=== PATIENT | male | born 1940 | race Caucasian/White ===

== ENCOUNTER → 2017-07-21 | Outpatient (CLI) | payer MEDICARE ==
[2017-07-21 12:01] LABS: Blood Urea Nitrogen 15 mg/dL (9-20); Non-African American GFR(MDRD) >60 (>60 ml/min/1.73 sqM)
--- NOTE | 2017-07-21 12:58 | CT ---
EXAMINATION TYPE: CT soft tissue neck w con DATE OF EXAM: 07/21/2017 HISTORY: Neck swelling or lump on left side COMPARISON: NONE CT DLP: 974 mGycm. Automated Exposure Control for Dose Reduction was Utilized. TECHNIQUE: CT scan of the neck is performed with IV Contrast, patient injected with 100 ml mL of Omn ipaque 300, axial images are obtained, coronal and sagittal reformatted images are reviewed. FINDINGS: Airway: Mild emphysematous change in lung apices is felt present. Parotid/submandibular glands: No gross abnormality seen. Carotid/Vascular Structures: There is mild plaque in the arch extending into 3 great vessels. There i s mild mixed plaque at bilateral carotid bulbs without significant stenosis evident. Osseous Structures: There is straightening of spine on sagittal images. There is moderate to severe d isc space narrowing and spurring at C5-C6 and C6-C7 levels. There is multilevel uncovertebral facet a rthropathy bilaterally on axial images. Other: Metallic BB is placed at level of palpable abnormality left parotid gland level on axial image 21 anterior mid aspect. No worrisome solid or cystic mass or fluid collection is clearly seen at thi s level. There is slightly prominent draining external jugular vein at this level noted in the deeper parotid tissue. No suspicious greater than 1 cm neck adenopathy is seen. IMPRESSION: No worrisome mass or adenopathy is evident with particular attention to area of patient clinical concern left neck.
== END | disposition home or self-care (01) ==
LOC: RADCTMAIN 11:18
PROVIDERS: ATTEND Internal Medicine
DX: R22.1 Localized swelling, mass and lump, neck (principal)
CPT/HCPCS: 82565; 84520; 70491; 36415; Q9967

== ENCOUNTER 2019-09-28 19:14 | Inpatient (IN) | payer MEDICARE ==
[2019-09-28] MEDS ORDERED: SODIUM CHLORIDE 0.9% 1,000 ML IV STA (19:31)
[2019-09-28] MEDS ORDERED: SODIUM CHLORIDE 0.9% 500 ML 500 ML IV STA (19:31)
[2019-09-28 19:57] LABS: Basophils # (A) 0.2 k/uL (0-0.2); Basophils % (A) 2 %; Eosinophils # (A) 0.1 k/uL (0-0.7); Eosinophils % (A) 1 %; HCT 49.3 % (39.0-53.0); HGB 16.1 gm/dL (13.0-17.5); Lymphocytes # (A) 1.9 k/uL (1.0-4.8); Lymphocytes % (A) 19 %; MCH 29.8 pg (25.0-35.0); MCHC 32.6 g/dL (31.0-37.0); MCV 91.5 fL (80.0-100.0); Mean Platelet Volume 5.8; Monocytes # (A) 0.6 k/uL (0-1.0); Monocytes % (A) 6 %; Neutrophils # (A) 7.1 k/uL (1.3-7.7); Neutrophils % (A) 71 %; Platelet Count 396 k/uL (150-450); RBC 5.39 m/uL (4.30-5.90); RDW 12.9 % (11.5-15.5)
[2019-09-28 20:09] LABS: ALT 22 U/L (21-72); AST 27 U/L (17-59); African American GFR (CKD) >90 (>60 ml/min/1.73 sqM); Albumin 4.3 g/dL (3.5-5.0); Alkaline Phosphatase 102 U/L (38-126); Anion Gap 9 mmol/L; Blood Urea Nitrogen 15 mg/dL (9-20); Calcium 9.7 mg/dL (8.4-10.2); Carbon Dioxide 27 mmol/L (22-30); Chloride 103 mmol/L (98-107); Glucose 106 mg/dL (74-99); Potassium 4.3 mmol/L (3.5-5.1); Sodium 139 mmol/L (137-145); Total Bilirubin 0.5 mg/dL (0.2-1.3); Total Protein 7.3 g/dL (6.3-8.2)
[2019-09-28] MEDS ORDERED: PANTOPRAZOLE 40 MG/10 ML VIAL IVP STA ×2 (20:16→20:18)
[2019-09-28] MEDS ORDERED: SODIUM CHLORIDE 0.9% 1,000 ML IV ONE (20:17)
[2019-09-28] MEDS ORDERED: SODIUM CHLORIDE 0.9% 500 ML 500 ML IV ONE (20:17)
--- NOTE | 2019-09-28 20:17 | ED ---
GI Bleed HPI - General Source: patient Mode of arrival: ambulatory Limitations: no limitations <Huyen Cameron - Last Filed: 09/28/19 22:38> <Krais Gilliam - Last Filed: 10/01/19 01:20> - General Chief complaint: GI Bleed Stated complaint: GI Bleed/weakness Time Seen by Provider: 09/28/19 19:32 - History of Present Illness Initial comments: 79-year-old male presents emergency department for chief complaint of bloody stools. Patient states around 4:30 he had the sensation that he was going to have a bowel movement and he states he had a large amount of bright red blood with clots. Patient states this persisted every 30 minutes in large quantities. Patient states by the evening he began to feel lightheaded and had generalized weakness. Causing him to presents emergency room. Patient denies any antico agulation use or alcohol abuse. Denies any known history of rectal cancer however has not had a colonoscopy with a negative occult blood stool testing. Patient denies any hematemesis. Patient denies any known peptic ulcers or chronic health conditions denies known history of diverticulosis. Patient denies any recent surgeries or chronic health issues. Patient denies abdominal pain nausea chest pain or shortness of breath. Remaining review systems negative upon arrival HR WNL, BP elevated. (Huyen Cameron) - Related Data Home Medications Medication Instructions Recorded Confirmed No Known Home Medications 09/28/19 09/28/19 Allergies Allergy/AdvReac Type Severity Reaction Status Date / Time No Known Allergies Allergy Verified 09/28/19 20:39 Review of Systems ROS Other: All systems not noted in ROS Statement are negative. <Huyen Cameron - Last Filed: 09/28/19 22:38> ROS Other: All systems not noted in ROS Statement are negative. <Karis Gilliam - Last Filed: 10/01/19 01:20> ROS Statement: Those systems with pertinent positive or pertinent negative responses have been documented in the HPI. Past Medical History Past Medical History: Osteoarthritis (OA), Renal Disease Additional Past Medical History / Comment(s): nephrolithiasis, R eye cataract History of Any Multi-Drug Resistant Organisms: None Reported Past Surgical History: Joint Replacement, Tonsillectomy Additional Past Surgical History / Comment(s): 07/12/16 total R knee arthroplasty. Other surgical hx: rt hip replacement, cystoscopy/surgery for kidney stone, surgery to repair ureter Past Anesthesia/Blood Transfusion Reactions: No Reported Reaction Past Psychological History: No Psychological Hx Reported Smoking Status: Former smoker Past Alcohol Use History: Rare Past Drug Use History: None Reported - Past Family History Mother Family Medical History: No Reported History Additional Family Medical History / Comment(s): Mother was healthy and lived to be 92 yrs old. Father Family Medical History: No Reported History Additional Family Medical History / Comment(s): Father was healthy and lived to be 82 yrs. old <Huyen Cameron - Last Filed: 09/28/19 22:38> General Exam Limitations: no limitations <Huyen Cameron - Last Filed: 09/28/19 22:38> - General Exam Comments Initial Comments: General: The patient is awake and alert, in no distress Eye: Pupils are equal, round and reactive to light, extra-ocular movements are intact. No nystagmus. There is normal conjunctiva bilaterally. No signs of icterus. Ears, nose, mouth and throat: There are moist mucous membranes and no oral lesions. Neck: The neck is supple, there is no tenderness or JVD. Cardiovascular: There is a regular rate and rhythm. No murmur, rub or gallop is appreciated. Respiratory: Lungs are clear to auscultation, respirations are non-labored, breath sounds are equal. No wheezes, stridor, rales, or rhonchi. Gastrointestinal: Soft, non-distended, non-tender abdomen without masses or organomegaly noted. There is no rebound or guarding present. Musculoskeletal: Normal ROM, no tenderness. Strength 5/5. Sensation intact. Radial pulses equal bilaterally 2+. Neurological: A&O x 3. CN II-XII intact, There are no obvious motor or sensory deficits. Coordination appears grossly intact. Speech is normal. Skin: Skin is warm and dry and no rashes or lesions are noted. Psychiatric: Cooperative, appropriate mood & affect, normal judgment. (Huyen Cameron) Course <Huyen Cameron - Last Filed: 09/28/19 22:38> Vital Signs 09/28/19 09/28/19 09/28/19 19:23 19:52 20:00 Temperature 97.8 F Pulse Rate 99 93 83 Respiratory 20 18 17 Rate Blood Pressure 160/93 143/99 153/94 O2 Sat by Pulse 96 Oximetry 09/28/19 09/28/19 09/28/19 20:10 20:20 20:30 Temperature Pulse Rate 109 H 89 100 Respiratory 19 17 Rate Blood Pressure 144/109 167/105 167/105 O2 Sat by Pulse 97 Oximetry 09/28/19 09/28/19 09/28/19 20:40 20:50 21:00 Temperature Pulse Rate 98 84 80 Respiratory 17 18 Rate Blood Pressure 167/105 144/93 144/93 O2 Sat by Pulse 97 97 Oximetry 09/28/19 21:30 Temperature 98 F Pulse Rate 86 Respiratory 15 Rate Blood Pressure 161/86 O2 Sat by Pulse 96 Oximetry - Reevaluation(s) Reevaluation #1: Patient had one very large bloody bowel movement bright red with large clots roughly 150-200cc 09/28/19 20:20 (Huyen Cameron) Medical Decision Making - Lab Data Result diagrams: 09/28/19 19:45 09/28/19 19:45 <Huyen Cameron - Last Filed: 09/28/19 22:38> - Lab Data Result diagrams: 09/30/19 04:20 09/30/19 04:20 <Karis Gilliam - Last Filed: 10/01/19 01:20> - Medical Decision Making 79-year-old male presenting for GI bleed. Large amounts of gross red blood with clots. Given the amount seen in the commode and patient's frequency I am conc erned for impeding anemia and possible hemodynamic instability thus feel patient should be placed in ICU for large GI bleed. Current HgB stable. BP elevated with normal HR. Patient evaluated by attending including amount of bleeding, will repeat CBC in 2 hours then q6h. Patient accepted by ICU attending and internal medicine. Patient agreeable with admission. (Huyen Cameron) I was available for consultation in the emergency department. The history and physical exam were done by the midlevel provider. I was consulted for this patients care. I reviewed the case with the midlevel provider and based on their presentation of the patient, I agree with the assessment, medical decision making and plan of care as documented. I evaluated the patient myself. I spoke with the hospitalist, automotive product engineer and GI physician. Chart was dictated using [employer] dictation software. Attempts were made to correct any dictation errors however some typographical errors may persist. (Karis Gilliam) - Lab Data Lab Results 09/28/19 09/28/19 09/28/19 Range/Units 19:40 19:45 19:45 WBC 10.0 (3.8-10.6) k/uL RBC 5.39 (4.30-5.90) m/uL Hgb 16.1 (13.0-17.5) gm/dL Hct 49.3 (39.0-53.0) % MCV 91.5 (80.0-100.0) fL MCH 29.8 (25.0-35.0) pg MCHC 32.6 (31.0-37.0) g/dL RDW 12.9 (11.5-15.5) % Plt Count 396 (150-450) k/uL Neutrophils % 71 % Lymphocytes % 19 % Monocytes % 6 % Eosinophils % 1 % Basophils % 2 % Neutrophils # 7.1 (1.3-7.7) k/uL Lymphocytes # 1.9 (1.0-4.8) k/uL Monocytes # 0.6 (0-1.0) k/uL Eosinophils # 0.1 (0-0.7) k/uL Basophils # 0.2 (0-0.2) k/uL APTT (22.0-30.0) sec Sodium (137-145) mmol/L Potassium (3.5-5.1) mmol/L Chloride (98-107) mmol/L Carbon Dioxide (22-30) mmol/L Anion Gap mmol/L BUN (9-20) mg/dL Creatinine (0.66-1.25) mg/dL Est GFR (CKD-EPI)AfAm (>60 ml/min/1.73 sqM) Est GFR (CKD-EPI)NonAf (>60 ml/min/1.73 sqM) Glucose (74-99) mg/dL Plasma Lactic Acid Vasiliy (0.7-2.0) mmol/L Calcium (8.4-10.2) mg/dL Total Bilirubin (0.2-1.3) mg/dL AST (17-59) U/L ALT (21-72) U/L Alkaline Phosphatase (38-126) U/L Troponin I (0.000-0.034) ng/mL Total Protein (6.3-8.2) g/dL Albumin (3.5-5.0) g/dL Stool Occult Blood Positive (Negative) Blood Type O Positive Blood Type Confirm Blood Type Recheck No Previous Record Bld Type Recheck Status CABO Indicated Antibody Screen NEGATIVE Spec Expiration Date 10/01/2019234409/28/19 09/28/19 09/28/19 Range/Units 19:45 19:45 19:45 WBC (3.8-10.6) k/uL RBC (4.30-5.90) m/uL Hgb (13.0-17.5) gm/dL Hct (39.0-53.0) % MCV (80.0-100.0) fL MCH (25.0-35.0) pg MCHC (31.0-37.0) g/dL RDW (11.5-15.5) % Plt Count (150-450) k/uL Neutrophils % % Lymphocytes % % Monocytes % % Eosinophils % % Basophils % % Neutrophils # (1.3-7.7) k/uL Lymphocytes # (1.0-4.8) k/uL Monocytes # (0-1.0) k/uL Eosinophils # (0-0.7) k/uL Basophils # (0-0.2) k/uL APTT 25.7 (22.0-30.0) sec Sodium 139 (137-145) mmol/L Potassium 4.3 (3.5-5.1) mmol/L Chloride 103 (98-107) mmol/L Carbon Dioxide 27 (22-30) mmol/L Anion Gap 9 mmol/L BUN 15 (9-20) mg/dL Creatinine 0.69 (0.66-1.25) mg/dL Est GFR (CKD-EPI)AfAm >90 (>60 ml/min/1.73 sqM) Est GFR (CKD-EPI)NonAf >90 (>60 ml/min/1.73 sqM) Glucose 106 H (74-99) mg/dL Plasma Lactic Acid Vasiliy 1.1 (0.7-2.0) mmol/L Calcium 9.7 (8.4-10.2) mg/dL Total Bilirubin 0.5 (0.2-1.3) mg/dL AST 27 (17-59) U/L ALT 22 (21-72) U/L Alkaline Phosphatase 102 (38-126) U/L Troponin I (0.000-0.034) ng/mL Total Protein 7.3 (6.3-8.2) g/dL Albumin 4.3 (3.5-5.0) g/dL Stool Occult Blood (Negative) Blood Type Blood Type Confirm Blood Type Recheck Bld Type Recheck Status Antibody Screen Spec Expiration Date 09/28/19 09/28/19 Range/Units 19:45 20:04 WBC (3.8-10.6) k/uL RBC (4.30-5.90) m/uL Hgb (13.0-17.5) gm/dL Hct (39.0-53.0) % MCV (80.0-100.0) fL MCH (25.0-35.0) pg MCHC (31.0-37.0) g/dL RDW (11.5-15.5) % Plt Count (150-450) k/uL Neutrophils % % Lymphocytes % % Monocytes % % Eosinophils % % Basophils % % Neutrophils # (1.3-7.7) k/uL Lymphocytes # (1.0-4.8) k/uL Monocytes # (0-1.0) k/uL Eosinophils # (0-0.7) k/uL Basophils # (0-0.2) k/uL APTT (22.0-30.0) sec Sodium (137-145) mmol/L Potassium (3.5-5.1) mmol/L Chloride (98-107) mmol/L Carbon Dioxide (22-30) mmol/L Anion Gap mmol/L BUN (9-20) mg/dL Creatinine (0.66-1.25) mg/dL Est GFR (CKD-EPI)AfAm (>60 ml/min/1.73 sqM) Est GFR (CKD-EPI)NonAf (>60 ml/min/1.73 sqM) Glucose (74-99) mg/dL Plasma Lactic Acid Vasiliy (0.7-2.0) mmol/L Calcium (8.4-10.2) mg/dL Total Bilirubin (0.2-1.3) mg/dL AST (17-59) U/L ALT (21-72) U/L Alkaline Phosphatase (38-126) U/L Troponin I <0.012 (0.000-0.034) ng/mL Total Protein (6.3-8.2) g/dL Albumin (3.5-5.0) g/dL Stool Occult Blood (Negative) Blood Type Blood Type Confirm O Positive Blood Type Recheck Bld Type Recheck Status Antibody Screen Spec Expiration Date Disposition Is patient prescribed a controlled substance at d/c from ED?: No Time of Disposition: 21:10 Decision to Admit Reason: Admit from EC Decision Date: 09/28/19 Decision Time: 21:10 <Huyen Cameron - Last Filed: 09/28/19 22:38> <Karis Gilliam - Last Filed: 10/01/19 01:20> Clinical Impression: GI bleed, Rectal bleeding Disposition: ADMITTED IP TO THIS [facility] Condition: Serious
--- NOTE | 2019-09-28 20:57 | CT ---
EXAMINATION TYPE: CT abdomen pelvis w con DATE OF EXAM: 09/28/2019 COMPARISON: None HISTORY: Blood in stool CT DLP: 1483.9 mGycm Automated exposure control for dose reduction was used. TECHNIQUE: Helical acquisition of images was performed from the lung bases through the pelvis. CONTRAST: Performed without Oral Contrast and with IV Contrast, patient injected with 100 mL of Isovue 300. FINDINGS: Lung bases are clear of consolidation. There is hiatal hernia. Heart size is normal. There is no pleu ral effusion. There are a few small cysts in the left lobe of the liver. Gallbladder appears normal. Spleen is intact. There is no pancreatic mass. There is small calcified gallstones. The bile ducts ar e not dilated. There is no adrenal mass. Kidneys show satisfactory contrast opacification. There is no hydronephrosi s. There is 2 cm cortical cyst lateral left kidney. Ureters are not dilated. There is no retroperiton eal adenopathy. Bladder distends smoothly. There is no inguinal hernia. There is right hip prosthesis . There is no free fluid in the pelvis. There are numerous diverticula in the sigmoid colon. There is e xtensive diverticulosis throughout the colon. There is no mesenteric edema. There is no ascites or free air. There is no sign of a bowel obstructio n. Appendix appears normal. Lumbar vertebra have normal alignment. There is extensive facet arthropathy and endplate spur formati on. There is severe L3-4 bony spinal stenosis. There is less severe spinal stenosis at L4-5 and L5-S1 . There is no compression fracture. IMPRESSION: EXTENSIVE COLONIC DIVERTICULOSIS WITHOUT SIGN OF DIVERTICULITIS. MULTILEVEL LUMBAR SPINAL STENOSIS. SEVERE SPINAL STENOSIS AT L3-4.
[2019-09-28] MEDS ORDERED: NALOXONE 0.4 MG/ML 1 ML VIAL IV PRN (21:07)
[2019-09-28] MEDS: SODIUM CHLORIDE 0.9% 1,000 ML IV SCH (21:33)
[2019-09-28 21:54] LABS: Glucose,Whole Blood 89 mg/dL (75-99)
[2019-09-28 22:21] VITALS: BMI 28.7
[2019-09-28 22:56] LABS: Basophils % (A) 0 %; Eosinophils # (A) 0.1 k/uL (0-0.7); Eosinophils % (A) 1 %; HCT 40.7 % (39.0-53.0); HGB 13.6 gm/dL (13.0-17.5); Lymphocytes # (A) 2.3 k/uL (1.0-4.8); Lymphocytes % (A) 24 %; MCH 30.6 pg (25.0-35.0); MCHC 33.5 g/dL (31.0-37.0); MCV 91.5 fL (80.0-100.0); Mean Platelet Volume 5.6; Monocytes # (A) 0.6 k/uL (0-1.0); Monocytes % (A) 6 %; Neutrophils # (A) 6.1 k/uL (1.3-7.7); Neutrophils % (A) 65 %; Platelet Count 349 k/uL (150-450); RBC 4.45 m/uL (4.30-5.90); RDW 12.8 % (11.5-15.5); WBC 9.3 k/uL (3.8-10.6)
[2019-09-29] MEDS ORDERED: TERBUTALINE 1 MG/ML VIAL SQ ONE (05:36)
[2019-09-29 05:51] LABS: Basophils # (A) 0.1 k/uL (0-0.2); Basophils % (A) 1 %; Eosinophils # (A) 0.2 k/uL (0-0.7); Eosinophils % (A) 2 %; HCT 38.5 % (39.0-53.0); HGB 12.4 gm/dL (13.0-17.5); Lymphocytes # (A) 2.2 k/uL (1.0-4.8); Lymphocytes % (A) 31 %; MCH 29.6 pg (25.0-35.0); MCHC 32.2 g/dL (31.0-37.0); Mean Platelet Volume 6.2; Monocytes # (A) 0.4 k/uL (0-1.0); Monocytes % (A) 6 %; Neutrophils # (A) 4.1 k/uL (1.3-7.7); Neutrophils % (A) 57 %; Platelet Count 336 k/uL (150-450); RBC 4.19 m/uL (4.30-5.90); RDW 12.9 % (11.5-15.5); WBC 7.1 k/uL (3.8-10.6)
[2019-09-29 05:58] LABS: African American GFR (CKD) >90 (>60 ml/min/1.73 sqM); Anion Gap 8 mmol/L; Blood Urea Nitrogen 12 mg/dL (9-20); Calcium 8.3 mg/dL (8.4-10.2); Carbon Dioxide 22 mmol/L (22-30); Chloride 108 mmol/L (98-107); Glucose 87 mg/dL (74-99); Potassium 4.1 mmol/L (3.5-5.1); Sodium 138 mmol/L (137-145)
[2019-09-29] MEDS: SODIUM CHLORIDE 0.9% 1,000 ML IV SCH ×2 (07:16→12:00)
[2019-09-29] MEDS: PANTOPRAZOLE 40 MG/10 ML VIAL IV SCH (09:12)
--- NOTE | 2019-09-29 09:27 | P.CNPUL ---
History of Present Illness Consult date: 09/29/19 Chief complaint: GI bleeding History of present illness: 79-year-old mckoy who came in yesterday to the emergency department complaining of bloody stool. This started on the day of admission and the patient had approximately 4 bowel movements prior to him coming to the hospital. He describes his bowel movements to be large in amount, bright red with clots. He was quite concerning end up coming into the hospital. He felt slightly lighthe aded and he was having some weakness. In the ED, the patient denied having any other complaints for now abdominal pain. No nausea. No vomiting. No hematemesis. He was hemodynamically stable. In fact his blood pressure was on the higher side. Overnight, continued to have on and off bleeding and he had another 3 additional bloody bowel movements. His hemoglobin dropped from 16 at baseline down to 12.4. Coags are within normal limits. Rest of the blood work is all within normal limits. The patient is receiving IV fluids in the form of normal saline at the rate of 1 25 mL an hour. He got a total of 3 L of IV fluid bolus in the emergency department. No history of any liver disease. No 70 nonsteroidal anti-inflammatory medication intake. The patient has not had a previous colonoscopy. He has had a previous Coligaurd evaluation for colon cancer. CAT scan of the abdomen was also done in the emergency department and it showed extensive colonic diverticulosis without signs of diverticulitis. He has also severe spinal stenosis at the level of L3-L4 and this is an incidental finding. He has osteoarthritis and he has undergone previous right knee and the right hip replacement. Review of Systems Constitutional: Denies chills, Denies fever Eyes: denies as per HPI, denies blurred vision, denies bulging eye, denies decreased vision, denies diplopia, denies discharge, denies dry eye, denies irritation, denies itching, denies pain, denies photophobia, denies loss of peripheral vision, denies loss of vision, denies tunnel vision/blind spots Ears: deny: decreased hearing, ear discharge, earache, tinnitus Ears, nose, mouth and throat: Denies headache, Denies sore throat Breasts: absent: as per HPI, gynecomastia Cardiovascular: Reports as per HPI Respiratory: Reports as per HPI Gastrointestinal: Reports BRBPR Genitourinary: Reports as per HPI Musculoskeletal: Reports as per HPI Musculoskeletal: absent: ankle pain, ankle stiffness, ankle swelling, as per HPI, elbow pain, elbow stiffness, elbow swelling, foot pain, foot stiffness, foot swelling, hand pain, hand stiffness, hand swelling, hip pain, hip stiffness, hip swelling, knee pain, knee stiffness, knee swelling, shoulder pa in, shoulder stiffness, shoulder swelling, wrist pain, wrist stiffness, wrist swelling Integumentary: Reports as per HPI Neurological: Reports as per HPI Psychiatric: Reports as per HPI Endocrine: Reports as per HPI Hematologic/Lymphatic: Reports as per HPI Allergic/Immunologic: Reports as per HPI Past Medical History Past Medical History: Osteoarthritis (OA) Additional Past Medical History / Comment(s): nephrolithiasis, R eye cataract History of Any Multi-Drug Resistant Organisms: None Reported Past Surgical History: Joint Replacement, Tonsillectomy Additional Past Surgical History / Comment(s): 07/12/16 total R knee arthroplasty. Other surgical hx: rt hip replacement, cystoscopy/surgery for kidney stone, surgery to repair ureter Past Anesthesia/Blood Transfusion Reactions: No Reported Reaction Past Psychological History: No Psychological Hx Reported Smoking Status: Former smoker Past Alcohol Use History: Rare Past Drug Use History: None Reported - Past Family History Mother Family Medical History: No Reported History Additional Family Medical History / Comment(s): Mother was healthy and lived to be 92 yrs old. Father Family Medical History: No Reported History Additional Family Medical History / Comment(s): Father was healthy and lived to be 82 yrs. old Medications and Allergies Home Medications Medication Instructions Recorded Confirmed Type No Known Home Medications 09/28/19 09/28/19 History Allergies Allergy/AdvReac Type Severity Reaction Status Date / Time No Known Allergies Allergy Verified 09/28/19 20:39 Physical Exam Vitals: Vital Signs Temp Pulse Pulse Resp BP BP Pulse Ox 09/29/19 09:00 75 14 134/88 97 09/29/19 08:30 83 13 148/91 96 09/29/19 08:00 97.9 F 74 17 117/72 98 09/29/19 07:30 84 18 129/92 97 09/29/19 07:00 67 14 108/75 97 09/29/19 06:30 75 16 137/83 95 09/29/19 06:00 80 13 113/62 96 09/29/19 05:30 66 10 L 96 09/29/19 05:00 85 12 118/81 94 L 09/29/19 04:30 83 12 101/74 95 09/29/19 04:00 97.5 F L 73 68 16 112/61 96 09/29/19 03:30 74 18 108/72 96 09/29/19 03:00 85 21 107/76 95 09/29/19 02:30 85 14 104/67 95 09/29/19 02:00 74 10 L 114/79 96 09/29/19 01:30 87 27 H 109/76 96 09/29/19 01:00 82 14 95 09/29/19 00:30 92 14 138/94 95 09/29/19 00:00 97.5 F L 24 146/93 95 09/28/19 23:49 83 15 146/93 95 09/28/19 23:47 77 20 09/28/19 23:35 80 18 146/93 95 09/28/19 23:00 77 20 125/92 95 09/28/19 22:38 86 09/28/19 22:00 80 18 141/96 95 09/28/19 21:30 98 F 86 15 161/86 96 09/28/19 21:00 80 18 144/93 97 09/28/19 20:50 84 17 144/93 97 09/28/19 20:40 98 167/105 09/28/19 20:30 100 167/105 09/28/19 20:20 89 17 167/105 97 09/28/19 20:10 109 H 19 144/109 09/28/19 20:00 83 17 153/94 09/28/19 19:52 93 18 143/99 09/28/19 19:23 97.8 F 99 20 160/93 96 Intake and Output 09/28/19 09/29/19 09/29/19 22:59 06:59 14:59 Intake Total 125 1125 250 Output Total 0 0 Balance 125 1125 250 Intake: IV 125 1125 250 Sodium Chloride 0.9% 1, 125 1125 250 000 ml @ 125 mls/hr IV . Q8H [facility] Rx#:[id number] Output: Urine 0 0 Other: # Voids 0 0 # Bowel Movements 1 0 0 Weight 102.058 kg 95.2 kg The patient appeared well nourished and normally developed. Vital signs as documented. Head exam is unremarkable. No scleral icterus or corneal arcus noted. Neck is without jugular venous distension, thyromegaly, or carotid bruits. Carotid upstrokes are brisk bilaterally. Lungs are clear to auscultation and percussion. Cardiac exam reveals the PMI to be normally sized and situated. Rhythm is regular. First and second heart sounds normal. No murmurs, rubs or gallops. Abdominal exam reveals normal bowel sounds, no masses, no organomegaly and no aortic enlargement. Extremities are nonedematous and both femoral and pedal pulses are normal.Examination of the skin revealed no evidence of significant rashes, suspicious appearing nevi or other concerning lesions. Neurologically the patient is awake and alert and there is no focal neurological deficit. Results - Laboratory Findings CBC and BMP: 09/29/19 04:41 09/29/19 04:41 Abnormal lab findings: Abnormal Labs 09/28/19 09/29/19 09/29/19 19:45 04:41 04:41 RBC 4.19 L Hgb 12.4 L Hct 38.5 L Chloride 108 H Creatinine 0.60 L Glucose 106 H Calcium 8.3 L Assessment and Plan Plan: 1 acute GI bleeding most likely of a lower GI source. Highly suspicious of a diverticular bleeding. CAT scan of the abdomen showed extensive colonic diverticulosis without diverticulitis. Fortunately, the patient is was re suscitated. His hemoglobin has dropped from 16.1 down to 12.4 and the patient has not required any packed RBC transfusion. His coags are also within normal limits. He is well resuscitated in normal saline infusion is running at 1 25 mL an hour. He is nothing by mouth for now. 2 history of kidney stones 3 history of osteoarthritis Plan Continue IV fluids. Keep the patient nothing by mouth. Monitor for bleeding. CBC every 6 hours. GI consultation. Surgery consultation if needed. We'll continue to follow monitor this patient in the ICU for today. SCDs to the lower extremity. IV Protonix.
[2019-09-29 09:54] LABS: Basophils # (A) 0.1 k/uL (0-0.2); Basophils % (A) 1 %; Eosinophils # (A) 0.1 k/uL (0-0.7); Eosinophils % (A) 2 %; HCT 39.1 % (39.0-53.0); HGB 12.9 gm/dL (13.0-17.5); Lymphocytes # (A) 1.3 k/uL (1.0-4.8); Lymphocytes % (A) 21 %; MCH 30.2 pg (25.0-35.0); MCHC 33.1 g/dL (31.0-37.0); MCV 91.4 fL (80.0-100.0); Monocytes # (A) 0.3 k/uL (0-1.0); Monocytes % (A) 5 %; Neutrophils # (A) 4.3 k/uL (1.3-7.7); Neutrophils % (A) 69 %; Platelet Count 327 k/uL (150-450); RBC 4.28 m/uL (4.30-5.90); RDW 13.1 % (11.5-15.5); WBC 6.2 k/uL (3.8-10.6)
--- NOTE | 2019-09-29 11:14 | P.CONS ---
History of Present Illness - Reason for Consult Consult date: 09/29/19 GI bleed Requesting physician: Bigg Noonan - Chief Complaint Blood per rectum - History of Present Illness 79-year-old male with a medical history significant for osteoarthritis who presented to the hospital due to blood per rectum. The patient reports developing bright red blood per rectum around 4 PM yesterday. He states that he subsequently had 3 further episodes before coming to the hospital. No pain in the abdomen associated with the blood per rectum. No prior episodes of blood per rectum. He's had 3 further episodes since coming to the hospital. At [facility] he reports 3 normal formed nonbloody bowel movements daily. No NSAID use at home but he does report occasional reflux and feeding spicy or tomato based foods for which she will take a Tums as needed. He reports her imaging suggestive of reflux disease. On presentation to the hospital he had a computed tomography scan of the abdomen significant for diverticulosis which was fairly extensive with spinal stenosis. Hemoglobin currently 12.9 from 12.4 previously and 16.9 on admission with stool testing positive for blood and total bilirubin 0.5, alkaline phosphatase 102, AST 27 and ALT 22. Currently the patient is in the ICU and nothing by mouth. Review of Systems REVIEW OF SYSTEMS: CONSTITUTIONAL: Denies any fevers, chills, weight change or fatigue. CARDIOVASCULAR: Denies any chest pain, palpitations high or low blood pressures RESPIRATORY: Denies any shortness of breath, hemoptysis or cough. GENITOURINARY: No dysuria or hematuria. MUSCULOSKELETAL: No weakness reported. SKIN: Denies any new rashes or lesions, jaundice or pallor. PSYCHIATRIC: Denies any depression or anxiety. NEUROLOGY: Denies headache, denies any new focal deficits. EARS/NOSE/THROAT: No recent hearing change, congestion, nasal discharge or sore throat. EYES: No pain in eyes, discharge or change in vision. GASTROINTESTINAL: As per HPI. Past Medical History Past Medical History: Osteoarthritis (OA) Additional Past Medical History / Comment(s): nephrolithiasis, R eye cataract History of Any Multi-Drug Resistant Organisms: None Reported Past Surgical History: Joint Replacement, Tonsillectomy Additional Past Surgical History / Comment(s): 07/12/16 total R knee arthroplasty. Other surgical hx: rt hip replacement, cystoscopy/surgery for kidney stone, surgery to repair ureter Past Anesthesia/Blood Transfusion Reactions: No Reported Reaction Past Psychological History: No Psychological Hx Reported Smoking Status: Former smoker Past Alcohol Use History: Rare Past Drug Use History: None Reported - Past Family History Mother Family Medical History: No Reported History Additional Family Medical History / Comment(s): Mother was healthy and lived to be 92 yrs old. Father Family Medical History: No Reported History Additional Family Medical History / Comment(s): Father was healthy and lived to be 82 yrs. old Medications and Allergies Home Medications Medication Instructions Recorded Confirmed Type No Known Home Medications 09/28/19 09/28/19 History Allergies Allergy/AdvReac Type Severity Reaction Status Date / Time No Known Allergies Allergy Verified 09/28/19 20:39 Physical Exam Vitals: Vital Signs Temp Pulse Pulse Resp BP BP Pulse Ox 09/29/19 09:00 75 14 134/88 97 09/29/19 08:30 83 13 148/91 96 09/29/19 08:00 97.9 F 74 17 117/72 98 09/29/19 07:30 84 18 129/92 97 09/29/19 07:00 67 14 108/75 97 09/29/19 06:30 75 16 137/83 95 09/29/19 06:00 80 13 113/62 96 09/29/19 05:30 66 10 L 96 09/29/19 05:00 85 12 118/81 94 L 09/29/19 04:30 83 12 101/74 95 09/29/19 04:00 97.5 F L 73 68 16 112/61 96 09/29/19 03:30 74 18 108/72 96 09/29/19 03:00 85 21 107/76 95 09/29/19 02:30 85 14 104/67 95 09/29/19 02:00 74 10 L 114/79 96 09/29/19 01:30 87 27 H 109/76 96 09/29/19 01:00 82 14 95 09/29/19 00:30 92 14 138/94 95 09/29/19 00:00 97.5 F L 24 146/93 95 09/28/19 23:49 83 15 146/93 95 09/28/19 23:47 77 20 09/28/19 23:35 80 18 146/93 95 09/28/19 23:00 77 20 125/92 95 09/28/19 22:38 86 09/28/19 22:00 80 18 141/96 95 09/28/19 21:30 98 F 86 15 161/86 96 09/28/19 21:00 80 18 144/93 97 09/28/19 20:50 84 17 144/93 97 09/28/19 20:40 98 167/105 09/28/19 20:30 100 167/105 09/28/19 20:20 89 17 167/105 97 09/28/19 20:10 109 H 19 144/109 09/28/19 20:00 83 17 153/94 09/28/19 19:52 93 18 143/99 09/28/19 19:23 97.8 F 99 20 160/93 96 Intake and Output 09/28/19 09/29/19 09/29/19 22:59 06:59 14:59 Intake Total 125 1125 250 Output Total 0 0 Balance 125 1125 250 Intake: IV 125 1125 250 Sodium Chloride 0.9% 1, 125 1125 250 000 ml @ 125 mls/hr IV . Q8H [facility] Rx#:[id number] Output: Urine 0 0 Other: # Voids 0 0 # Bowel Movements 1 0 0 Weight 102.058 kg 95.2 kg On physical examination, patient appears comfortable in no apparent distress. HEAD: Normocephalic, atraumatic. EYES: No scleral icterus. No conjunctival injection. MOUTH: No lesions, tongue midline. NECK: Trachea midline, no gross abnormalities. CHEST: Clear to auscultation with no wheezing or rhonchi appreciated. HEART: Regular rate and rhythm. ABDOMEN: Soft, obese. Bowel sounds are positive. No organomegaly. No guarding or rigidity. EXTREMITIES: No pedal edema. SKIN: No rashes, no jaundice. NEUROLOGIC: Alert and oriented x3. No focal deficits. Results CBC & Chem 7: 09/29/19 09:43 09/29/19 04:41 Labs: Abnormal Lab Results - Last 24 Hours (Table) 09/28/19 09/29/19 09/29/19 Range/Units 19:45 04:41 04:41 RBC 4.19 L (4.30-5.90) m/uL Hgb 12.4 L (13.0-17.5) gm/dL Hct 38.5 L (39.0-53.0) % Chloride 108 H (98-107) mmol/L Creatinine 0.60 L (0.66-1.25) mg/dL Glucose 106 H (74-99) mg/dL Calcium 8.3 L (8.4-10.2) mg/dL 09/29/19 Range/Units 09:43 RBC 4.28 L (4.30-5.90) m/uL Hgb 12.9 L (13.0-17.5) gm/dL Hct (39.0-53.0) % Chloride (98-107) mmol/L Creatinine (0.66-1.25) mg/dL Glucose (74-99) mg/dL Calcium (8.4-10.2) mg/dL CT scan - abdomen: report reviewed (Computed tomography scan of the abdomen with findings of extensive diverticulosis and spinal stenosis.) Assessment and Plan (1) GI bleed Narrative/Plan: 79-year-old male with a medical history significant for cataracts and osteoarthritis who presented to the hospital with painless bright red blood per rectum. Multiple episodes of bright red blood with one episode of clots noted. The patient denies any prior episodes of bright red blood per rectum. No colonoscopy in the past and she did undergo Cologard testing in 10/2018 which she says was normal. He denies any pain or cramping at this time. Hemoglobin was 16.9 on presentation and is currently 12.9 stable from 12.4 on last blood draw. Stool did test positive for blood. Computed tomography scan of the abdomen showed extensive diverticulosis and spinal stenosis. At this time suspicion is for diverticular bleed, with differential also including AVM, stercoral ulcer, with malignancy or upper GI etiology not totally excluded. Current Visit: Yes Status: Acute Code(s): K92.2 - GASTROINTESTINAL HEMORRHAGE, UNSPECIFIED SNOMED Code(s): 11111817 (2) Diverticulosis Current Visit: Yes Status: Acute Code(s): K57.90 - DVRTCLOS OF INTEST, PART UNSP, W/O PERF OR ABSCESS W/O BLEED SNOMED Code(s): 216308399 Plan: Supportive care Continue to monitor hemoglobin and hematocrit and transfuse as needed Nothing by mouth for now Continue Protonix therapy Case discussed with the patient at length and at this time we'll proceed with EGD to rule out upper GI etiology of symptoms Thank you for allowing us to participate in the care of the patient we will continue to follow
--- NOTE | 2019-09-29 12:28 | P.HPIM ---
History of Present Illness H&P Date: 09/29/19 Chief Complaint: Gastrointestinal bleeding Golden Cornejo is a 79-year-old male who presented to [facility] emergency room with a chief complaint of bloody stools. Patient states that yesterday afternoon he felt that he was going to have a bowel movement, he went to the bathroom and had large amount of bright red blood and blood clots, patient had multiple such episodes over 30 minutes and he started feeling lightheaded and dizzy and he decided to come to emergency room. Patient denies any nausea or vomiting or abdominal pain. Hemoglobin on presentation was 16.1 however due to active bleeding patient was admitted directly to intensive care unit gastroenterology consultation and critical care consultation were requested. Computed tomography scan of the abdomen and pelvis without contrast was done in the emergency room and revealed extensive diverticulosis without any evidence of diverticulitis, no other abdominal or pelvic abnormality was found on the computed tomography scan. Patient has no significant past medical history, he does not take any medications at home, he was advised repeatedly in the past to have a colonoscopy however he declined. On review of systems: patient is alert and oriented 3 in no apparent distress, he denies any fever or chills no headache or dizziness no chest pain no shortness of breath no cough no nausea or vomiting no abdominal pain he is still having episodes of diarrhea with bloody stools, there is no burning was urination no frequency or urgency and no hematuria, there is no weakness or numbness in any of the extremities there is no change in vision or speech or gait. Past Medical History Past Medical History: Osteoarthritis (OA) Additional Past Medical History / Comment(s): nephrolithiasis, R eye cataract History of Any Multi-Drug Resistant Organisms: None Reported Past Surgical History: Joint Replacement, Tonsillectomy Additional Past Surgical History / Comment(s): 07/12/16 total R knee arthroplasty. Other surgical hx: rt hip replacement, cystoscopy/surgery for kidney stone, surgery to repair ureter Past Anesthesia/Blood Transfusion Reactions: No Reported Reaction Past Psychological History: No Psychological Hx Reported Smoking Status: Former smoker Past Alcohol Use History: Rare Past Drug Use History: None Reported - Past Family History Mother Family Medical History: No Reported History Additional Family Medical History / Comment(s): Mother was healthy and lived to be 92 yrs old. Father Family Medical History: No Reported History Additional Family Medical History / Comment(s): Father was healthy and lived to be 82 yrs. old Medications and Allergies Home Medications Medication Instructions Recorded Confirmed Type No Known Home Medications 09/28/19 09/28/19 History Allergies Allergy/AdvReac Type Severity Reaction Status Date / Time No Known Allergies Allergy Verified 09/28/19 20:39 Physical Exam Vitals: Vital Signs Temp Pulse Pulse Resp BP BP Pulse Ox 09/29/19 11:00 80 17 135/93 97 09/29/19 10:30 80 12 132/81 97 09/29/19 10:00 89 12 144/82 96 09/29/19 09:30 77 13 134/84 96 09/29/19 09:00 75 14 134/88 97 09/29/19 08:30 83 13 148/91 96 09/29/19 08:00 97.9 F 74 17 117/72 98 09/29/19 07:30 84 18 129/92 97 09/29/19 07:00 67 14 108/75 97 09/29/19 06:30 75 16 137/83 95 09/29/19 06:00 80 13 113/62 96 09/29/19 05:30 66 10 L 96 09/29/19 05:00 85 12 118/81 94 L 09/29/19 04:30 83 12 101/74 95 09/29/19 04:00 97.5 F L 73 68 16 112/61 96 09/29/19 03:30 74 18 108/72 96 09/29/19 03:00 85 21 107/76 95 09/29/19 02:30 85 14 104/67 95 09/29/19 02:00 74 10 L 114/79 96 09/29/19 01:30 87 27 H 109/76 96 09/29/19 01:00 82 14 95 09/29/19 00:30 92 14 138/94 95 09/29/19 00:00 97.5 F L 24 146/93 95 09/28/19 23:49 83 15 146/93 95 09/28/19 23:47 77 20 09/28/19 23:35 80 18 146/93 95 09/28/19 23:00 77 20 125/92 95 09/28/19 22:38 86 09/28/19 22:00 80 18 141/96 95 09/28/19 21:30 98 F 86 15 161/86 96 09/28/19 21:00 80 18 144/93 97 09/28/19 20:50 84 17 144/93 97 09/28/19 20:40 98 167/105 09/28/19 20:30 100 167/105 09/28/19 20:20 89 17 167/105 97 09/28/19 20:10 109 H 19 144/109 09/28/19 20:00 83 17 153/94 09/28/19 19:52 93 18 143/99 09/28/19 19:23 97.8 F 99 20 160/93 96 Intake and Output 09/28/19 09/29/19 09/29/19 22:59 06:59 14:59 Intake Total 125 1125 500 Output Total 0 0 Balance 125 1125 500 Intake: IV 125 1125 500 Sodium Chloride 0.9% 1, 125 1125 500 000 ml @ 125 mls/hr IV . Q8H [facility] Rx#:[id number] Output: Urine 0 0 Other: # Voids 0 0 # Bowel Movements 1 0 1 Weight 102.058 kg 95.2 kg In general patient is alert and oriented 3 in no apparent distress HEENT head normocephalic and atraumatic Neck is supple no JVD no goiter no lymphadenopathy Chest exam reveals a few scattered crackles no wheezing Cardiac exam reveals regular heart sounds S1 and S2 no gallops no murmurs Abdomen is soft nontender no organomegaly with normal bowel sounds Extremity exam reveals no edema no cyanosis or clubbing Neurological examination reveals no gross focal deficit Results CBC & Chem 7: 09/29/19 09:43 09/29/19 04:41 Labs: Abnormal Lab Results - Last 24 Hours (Table) 09/28/19 09/29/19 09/29/19 Range/Units 19:45 04:41 04:41 RBC 4.19 L (4.30-5.90) m/uL Hgb 12.4 L (13.0-17.5) gm/dL Hct 38.5 L (39.0-53.0) % Chloride 108 H (98-107) mmol/L Creatinine 0.60 L (0.66-1.25) mg/dL Glucose 106 H (74-99) mg/dL Calcium 8.3 L (8.4-10.2) mg/dL 09/29/19 Range/Units 09:43 RBC 4.28 L (4.30-5.90) m/uL Hgb 12.9 L (13.0-17.5) gm/dL Hct (39.0-53.0) % Chloride (98-107) mmol/L Creatinine (0.66-1.25) mg/dL Glucose (74-99) mg/dL Calcium (8.4-10.2) mg/dL Thrombosis Risk Factor Assmnt - Choose All That Apply Each Factor Represents 1 point: Obesity (BMI >25) Each Risk Factor Represents 3 Points: Age 75 years or older Other congenital or acquired thrombophilia - If yes, enter type in comment: No Thrombosis Risk Factor Assessment Total Risk Factor Score: 4 Thrombosis Risk Factor Assessment Level: Moderate Risk Assessment and Plan Plan: #1 gastrointestinal bleeding most likely lower GI bleed related to diverticulosis, however patient describes also some melanotic stools, gas troenterology consult requested patient is scheduled to have EGD and colonoscopy today #2 acute blood loss anemia, related to gastrointestinal bleeding, hemoglobin is down from 16.1-12.4 will continue to monitor #3 evidence of extensive diverticulosis on computed tomography scan without any evidence of acute diverticulitis #4 evidence of multilevel lumbar spinal stenosis with severe spinal stenosis at L3-4 patient denies any related symptoms at this time Patient was started on IV Protonix For DVT prophylaxis avoid anticoagulation and use SCD stockings and increased ambulation as possible Will follow closely awaiting results of EGD and colonoscopy
[2019-09-29] MEDS ORDERED: LIDOCAINE 1% INJ 10MG/ML (20 ML MDV) ONE (12:54)
[2019-09-29] MEDS ORDERED: PROPOFOL 10 MG/ML 20 ML VIAL IV ONE (12:54)
[2019-09-29] MEDS ORDERED: IV FLUID CONTINUATION 1,000 ML IV ONE (13:24)
--- NOTE | 2019-09-29 13:34 | P.PCN ---
Date of Procedure: 09/29/19 Description of Procedure: BRIEF HISTORY: 79-year-old male with a medical history significant for cataracts and osteoarthritis who presented to the hospital with painless bright red blood per rectum. Multiple episodes of bright red blood with one episode of clots noted. The patient denies any prior episodes of bright red blood per rectum. No colonoscopy in the past and she did undergo Cologard testing in 10/2018 which she says was normal. He denies any pain or cramping at this time. Hemoglobin was 16.9 on presentation and is currently 12.9 stable from 12.4 on last blood draw. Stool did test positive for blood. Computed tomography scan of the abdomen showed extensive diverticulosis and spinal stenosis. PROCEDURE PERFORMED: Esophagogastroduodenoscopy with biopsy. PREOPERATIVE DIAGNOSIS: Blood per rectum, GI bleed. ESTIMATED BLOOD LOSS: Minimal. IV sedation per anesthesia. PROCEDURE: After informed consent was obtained, the patient was brought into the endoscopy unit. IV sedation was administered by Anesthesia under continuous monitoring. Initially the Olympus GIF-190 video endoscope was inserted into the mouth. Esophagus intubated without any difficulty. It was gradually advanced into the stomach and duodenum and carefully examined. The bulb and the second part of the duodenum appeared normal, with biopsies taken. The scope at this time was withdrawn to the stomach, adequately insufflated with air, and upon careful examination, mucosa of the antrum, body, cardia and the fundus appeared normal, with biopsies taken. The scope was then withdrawn into the esophagus. The GE junction was located at 35 cm from the incisors. The esophagus appeared grossly normal, there were 6 cm in the distal esophagus appearance of long segment Christianson's esophagus with random biopsies of the distal esophagus taken. There were no erosions or ulcerations seen and the patient tolerated the procedure well. IMPRESSION: 1. No active bleeding, old blood or pathology to explain symptoms. 2. Suspicion for Christianson's esophagus with biopsies of the distal esophagus taken. Biopsies also taken of the duodenum and antrum and body of the stomach. RECOMMENDATIONS: The findings of this examination were discussed with the patient. Okay for ice chips for now. If patient remains stable can start clear liquid diet tomorrow. Continue Protonix daily. Await pathology from biopsies. Further recommendations pending clinical course.
[2019-09-29 16:39] LABS: Basophils % (A) 0 %; Eosinophils # (A) 0.1 k/uL (0-0.7); Eosinophils % (A) 2 %; HCT 36.9 % (39.0-53.0); HGB 12.2 gm/dL (13.0-17.5); Lymphocytes # (A) 1.6 k/uL (1.0-4.8); Lymphocytes % (A) 25 %; MCH 30.4 pg (25.0-35.0); Mean Platelet Volume 5.9; Monocytes # (A) 0.3 k/uL (0-1.0); Monocytes % (A) 5 %; Neutrophils # (A) 4.2 k/uL (1.3-7.7); Neutrophils % (A) 65 %; Platelet Count 318 k/uL (150-450); RBC 4.01 m/uL (4.30-5.90); WBC 6.5 k/uL (3.8-10.6)
[2019-09-29 23:17] LABS: Basophils % (A) 0 %; Eosinophils # (A) 0.1 k/uL (0-0.7); Eosinophils % (A) 2 %; HCT 35.3 % (39.0-53.0); HGB 11.4 gm/dL (13.0-17.5); Lymphocytes # (A) 1.7 k/uL (1.0-4.8); Lymphocytes % (A) 25 %; MCH 29.5 pg (25.0-35.0); MCHC 32.3 g/dL (31.0-37.0); MCV 91.3 fL (80.0-100.0); Mean Platelet Volume 6.1; Monocytes # (A) 0.4 k/uL (0-1.0); Monocytes % (A) 6 %; Neutrophils # (A) 4.4 k/uL (1.3-7.7); Neutrophils % (A) 65 %; Platelet Count 318 k/uL (150-450); RBC 3.87 m/uL (4.30-5.90); WBC 6.8 k/uL (3.8-10.6)
[2019-09-30] MEDS: SODIUM CHLORIDE 0.9% 1,000 ML IV SCH ×2 (01:24→08:13)
[2019-09-30 05:12] LABS: Basophils # (A) 0.1 k/uL (0-0.2); Basophils % (A) 1 %; Eosinophils # (A) 0.2 k/uL (0-0.7); Eosinophils % (A) 4 %; HCT 33.5 % (39.0-53.0); HGB 11.1 gm/dL (13.0-17.5); Lymphocytes # (A) 1.8 k/uL (1.0-4.8); Lymphocytes % (A) 29 %; MCH 30.7 pg (25.0-35.0); MCHC 33.1 g/dL (31.0-37.0); MCV 92.7 fL (80.0-100.0); Mean Platelet Volume 5.8; Monocytes # (A) 0.4 k/uL (0-1.0); Monocytes % (A) 7 %; Neutrophils # (A) 3.5 k/uL (1.3-7.7); Neutrophils % (A) 56 %; Platelet Count 310 k/uL (150-450); RBC 3.61 m/uL (4.30-5.90); WBC 6.2 k/uL (3.8-10.6)
[2019-09-30 05:23] LABS: African American GFR (CKD) >90 (>60 ml/min/1.73 sqM); Anion Gap 7 mmol/L; Blood Urea Nitrogen 8 mg/dL (9-20); Calcium 8.1 mg/dL (8.4-10.2); Carbon Dioxide 24 mmol/L (22-30); Chloride 109 mmol/L (98-107); Glucose 72 mg/dL (74-99); Potassium 3.8 mmol/L (3.5-5.1); Sodium 140 mmol/L (137-145)
[2019-09-30] MEDS: PANTOPRAZOLE 40 MG/10 ML VIAL IV SCH (08:13)
--- NOTE | 2019-09-30 11:17 | P.PN ---
<Cinthia Sims P - Last Filed: 09/30/19 11:13> Subjective Progress Note Date: 09/30/19 Golden Cornejo is a 79-year-old male who presented to [facility] emergency room with a chief complaint of bloody stools. Patient states that yesterday afternoon he felt that he was going to have a bowel movement, he went to the bathroom and had large amount of bright red blood and blood clots, patient had multiple such episodes over 30 minutes and he started feeling lightheaded and dizzy and he decided to come to emergency room. Patient denies any nausea or vomiting or abdominal pain. Hemoglobin on presentation was 16.1 however due to active bleeding patient was admitted directly to intensive care unit gastroenterology consultation and critical care consultation were requested. Computed tomography scan of the abdomen and pelvis without contrast was done in the emergency room and revealed extensive diverticulosis without any evidence of diverticulitis, no other abdominal or pelvic abnormality was found on the computed tomography scan. Patient has no significant past medical history, he does not take any medications at home, he was advised repeatedly in the past to have a colonoscopy however he declined. On review of systems: patient is alert and oriented 3 in no apparent distress, he denies any fever or chills no headache or dizziness no chest pain no shortness of breath no cough no nausea or vomiting no abdominal pain he is still having episodes of diarrhea with bloody stools, there is no burning was urination no frequency or urgency and no hematuria, there is no weakness or numbness in any of the extremities there is no change in vision or speech or gait. On 09/30/2019 she is alert and oriented 3. Per nursing staff patient did have some dark stool this a.m. Hemoglobin remained stable at 11.1. Patient is status post EGD showing no active bleeding or blood or pathology to explain symptoms suspicion for Christianson's esophagus with biopsies of the distal esophagus. Biopsies taken of the duodenal management body of the stomach. Patient denies any chest pain or shortness of breath. Patient denies nausea vomiting or diarrhea. Patient denies any urinary burning or frequency. Awaiting GI decision in regards to possible colonoscopy vs advancing diet Objective - Vital Signs Vital signs: Vital Signs Temp 98.0 F 09/30/19 08:01 Pulse 86 09/30/19 11:00 Resp 15 09/30/19 11:00 BP 120/84 11/11/19 11:00 Pulse Ox 97 09/30/19 11:00 Intake & Output 09/29/19 09/30/19 09/30/19 18:59 06:59 18:59 Intake Total 2014 1375 625 Output Total 450 1350 Balance 1565 25 625 Weight 96 kg Intake: IV 1775 1375 625 Sodium Chloride 0.9% 1, 1375 1375 625 000 ml @ 125 mls/hr IV . Q8H [facility] Rx#:[id number] Oral 240 Output: Urine 450 1350 Other: Voiding Method Toilet Toilet Toilet # Voids 1 1 1 # Bowel Movements 0 1 - Exam In general patient is alert and oriented 3 in no apparent distress HEENT head normocephalic and atraumatic Neck is supple no JVD no goiter no lymphadenopathy Chest exam reveals a few scattered crackles no wheezing Cardiac exam reveals regular heart sounds S1 and S2 no gallops no murmurs Abdomen is soft nontender no organomegaly with normal bowel sounds Extremity exam reveals no edema no cyanosis or clubbing Neurological examination reveals no gross focal deficit - Labs CBC & Chem 7: 09/30/19 04:20 09/30/19 04:20 Labs: Abnormal Lab Results - Last 24 Hours (Table) 09/29/19 09/29/19 09/30/19 Range/Units 16:04 22:18 04:20 RBC 4.01 L 3.87 L (4.30-5.90) m/uL Hgb 12.2 L 11.4 L (13.0-17.5) gm/dL Hct 36.9 L 35.3 L (39.0-53.0) % Chloride 109 H (98-107) mmol/L BUN 8 L (9-20) mg/dL Creatinine 0.59 L (0.66-1.25) mg/dL Glucose 72 L (74-99) mg/dL Calcium 8.1 L (8.4-10.2) mg/dL 09/30/19 Range/Units 04:20 RBC 3.61 L (4.30-5.90) m/uL Hgb 11.1 L (13.0-17.5) gm/dL Hct 33.5 L (39.0-53.0) % Chloride (98-107) mmol/L BUN (9-20) mg/dL Creatinine (0.66-1.25) mg/dL Glucose (74-99) mg/dL Calcium (8.4-10.2) mg/dL Assessment and Plan Assessment: #1 gastrointestinal bleeding most likely lower GI bleed related to diverticulosis, however patient describes also some melanotic stools. Status post EGD showing no active bleeding, old blood or pathology to explain symptoms. Suspicion for Christianson's esophagus with biopsies of the distal esophagus taken biopsies also taken of the duodenum and antrum and body of the stomach. Possible clear liquid diet today possible colonoscopy. Hemoglobin 11.1 #2 acute blood loss anemia, related to gastrointestinal bleeding, hemoglobin is down from 16.1-12.4 will continue to monitor #3 evidence of extensive diverticulosis on computed tomography scan without any evidence of acute diverticulitis #4 evidence of multilevel lumbar spinal stenosis with severe spinal stenosis at L3-4 patient denies any related symptoms at this time Patient was started on IV Protonix For DVT prophylaxis avoid anticoagulation and use SCD stockings and increased ambulation as possible Will follow closely awaiting results of EGD and colonoscopy I performed an examination of the patient and discussed their management with the Nurse Practitioner. I have reviewed the Nurse Practitioner's notes and agree with the documented findings and plan of care <Bigg Noonan - Last Filed: 10/03/19 09:59> Objective - Vital Signs Vital signs: Vital Signs Temp 97.9 F 10/01/19 07:00 Pulse 88 10/01/19 07:00 Resp 12 10/01/19 07:00 BP 123/68 10/01/19 07:00 Pulse Ox 99 10/01/19 07:00 - Labs CBC & Chem 7: 10/01/19 04:16 10/01/19 04:14 Assessment and Plan Assessment: Patient stable to be transferred out of the Intensive care Unit
--- NOTE | 2019-09-30 11:58 | P.PN ---
Subjective Progress Note Date: 09/30/19 Principal diagnosis: Acute GI bleeding 79-year-old mckoy who came in yesterday to the emergency department complaining of bloody stool. This started on the day of admission and the patient had approximately 4 bowel movements prior to him coming to the hospital. He describes his bowel movements to be large in amount, bright red with clots. He was quite concerning end up coming into the hospital. He felt slightly lightheaded and he was having some weakness. In the ED, the patient denied having any other complaints for now abdominal pain. No nausea. No vomiting. No hematemesis. He was hemodynamically stable. In fact his blood pressure was on the higher side. Overnight, continued to have on and off bleeding and he had another 3 additional bloody bowel movements. His hemoglobin dropped from 16 at baseline down to 12.4. Coags are within normal limits. Rest of the blood work is all within normal limits. The patient is receiving IV fluids in the form of normal saline at the rate of 1 25 mL an hour. He got a total of 3 L of IV fluid bolus in the emergency department. No history of any liver disease. No 70 nonsteroidal anti-inflammatory medication intake. The patient has not had a previous colonoscopy. He has had a previous Coligaurd evaluation for colon cancer. CAT scan of the abdomen was also done in the emergency department and it showed extensive colonic diverticulosis without signs of diverticulitis. He has also severe spinal stenosis at the level of L3-L4 and this is an incidental finding. He has osteoarthritis and he has undergone previous right knee and the right hip replacement. Patient was reevaluated today on 09/30/2019, had one episode earlier this morning with slightly maroon colored stools, no bright red blood per rectum. Patient had an admission hemoglobin of 16.1, and this was on 09/28/2019, today's hemoglobin is 11.1. Did not require any blood transfusion so far. Patient is hemodynamically stable, his coags are within normal. Patient had EGD and biopsy, no active bleeding was noted, however the biopsies were done from the distal esophagus mostly because of clinical suspicion of Christianson esophagus. But again his findings did not explain his presentation of bleeding, I still believe his GI bleeding is most likely secondary to diverticular bleed unless proven otherwise. Patient never had a colonoscopy in the past. And he may eventually require colonoscopy to document his diverticular disease and diverticular bleeding and this could be done on outpatient basis if gastroenterology staff prefers to do so. And assuming the patient stops bleeding while inpatient. Objective - Vital Signs Vital signs: Vital Signs Temp 98.0 F 09/30/19 08:01 Pulse 86 09/30/19 11:00 Resp 15 09/30/19 11:00 BP 120/84 09/30/19 11:00 Pulse Ox 97 09/30/19 11:00 Intake & Output 09/29/19 09/30/19 09/30/19 18:59 06:59 18:59 Intake Total 2014 1375 625 Output Total 450 1350 Balance 1565 25 625 Weight 96 kg Intake: IV 1775 1375 625 Sodium Chloride 0.9% 1, 1375 1375 625 000 ml @ 125 mls/hr IV . Q8H [facility] Rx#:[id number] Oral 240 Output: Urine 450 1350 Other: Voiding Method Toilet Toilet Toilet # Voids 1 1 1 # Bowel Movements 0 1 - Exam Physical Exam: Revealed a 79-year-old white male in no distress. HEENT:[Neck is supple.] [No neck masses.] [No thyromegaly.] [No JVD.] PERRLA, EOMI, neck is. Chest: [Clear throughout, no crackles, no rhonchi, no wheezes.] Cardiac Exam: [Normal S1 and S2, no S3 gallop, no murmur.] Abdomen: [Soft, nontender, no megaly, no rebound, no guarding, normal bowel sounds.] Extremities: [No clubbing, no edema, no cyanosis.] Neurological Exam: [No focal neurologic deficit.] Alert and oriented 3. Psychiatric: Normal mood, affect and normal mental status examination. Skin: No rashes. Lymphatics: No lymphadenopathy. - Labs CBC & Chem 7: 09/30/19 04:20 09/30/19 04:20 Labs: Abnormal Lab Results - Last 24 Hours (Table) 09/29/19 09/29/19 09/30/19 Range/Units 16:04 22:18 04:20 RBC 4.01 L 3.87 L (4.30-5.90) m/uL Hgb 12.2 L 11.4 L (13.0-17.5) gm/dL Hct 36.9 L 35.3 L (39.0-53.0) % Chloride 109 H (98-107) mmol/L BUN 8 L (9-20) mg/dL Creatinine 0.59 L (0.66-1.25) mg/dL Glucose 72 L (74-99) mg/dL Calcium 8.1 L (8.4-10.2) mg/dL 09/30/19 Range/Units 04:20 RBC 3.61 L (4.30-5.90) m/uL Hgb 11.1 L (13.0-17.5) gm/dL Hct 33.5 L (39.0-53.0) % Chloride (98-107) mmol/L BUN (9-20) mg/dL Creatinine (0.66-1.25) mg/dL Glucose (74-99) mg/dL Calcium (8.4-10.2) mg/dL Assessment and Plan Assessment: Impression: 1 acute GI bleeding most likely diverticular in nature unless proven otherwise. 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 3 history of degenerative joint disease 4 history of nephrolithiasis. Recommendation: Continue present supportive care measures, continue to monitor daily hemoglobin and hematocrit, decision will be made likely by gastroenterology staff as whether to perform colonoscopy or continue to manage conservatively. This will hopefully be decided upon by cardiology today. In the meantime we'll continue to monitor in the ICU. We'll continue to follow. So far, the patient did not require any blood transfusion Time with Patient: Less than 30
[2019-10-01 04:52] LABS: Basophils % (A) 1 %; Eosinophils # (A) 0.2 k/uL (0-0.7); Eosinophils % (A) 3 %; HCT 32.9 % (39.0-53.0); HGB 11.1 gm/dL (13.0-17.5); Lymphocytes # (A) 1.8 k/uL (1.0-4.8); Lymphocytes % (A) 29 %; MCH 30.6 pg (25.0-35.0); MCHC 33.8 g/dL (31.0-37.0); MCV 90.7 fL (80.0-100.0); Mean Platelet Volume 5.5; Monocytes # (A) 0.4 k/uL (0-1.0); Monocytes % (A) 7 %; Neutrophils # (A) 3.5 k/uL (1.3-7.7); Neutrophils % (A) 57 %; Platelet Count 326 k/uL (150-450); RBC 3.62 m/uL (4.30-5.90); RDW 12.8 % (11.5-15.5); WBC 6.1 k/uL (3.8-10.6)
[2019-10-01 05:05] LABS: ALT 18 U/L (21-72); AST 20 U/L (17-59); African American GFR (CKD) >90 (>60 ml/min/1.73 sqM); Alkaline Phosphatase 56 U/L (38-126); Anion Gap 6 mmol/L; Blood Urea Nitrogen 8 mg/dL (9-20); Calcium 8.5 mg/dL (8.4-10.2); Carbon Dioxide 25 mmol/L (22-30); Chloride 107 mmol/L (98-107); Glucose 84 mg/dL (74-99); Potassium 3.7 mmol/L (3.5-5.1); Sodium 138 mmol/L (137-145); Total Bilirubin 0.4 mg/dL (0.2-1.3); Total Protein 5.3 g/dL (6.3-8.2)
[2019-10-01] MEDS: SODIUM CHLORIDE 0.9% 1,000 ML IV SCH (06:55)
[2019-10-01 07:43] VITALS: BP 123/68; PULSE 88; RESP 12; TEMP 97.9
--- NOTE | 2019-10-01 08:06 | P.PN ---
Subjective Progress Note Date: 09/30/19 Principal diagnosis: GI bleed Patient seen lying in bed. No abdominal pain. Last blood past today, with some dark clots reported. Objective - Vital Signs Vital signs: Vital Signs Temp 98.8 F 09/30/19 12:00 Pulse 84 09/30/19 23:00 Resp 15 09/30/19 23:22 BP 133/82 09/30/19 23:00 Pulse Ox 96 09/30/19 20:00 Intake & Output 09/30/19 09/30/19 10/01/19 06:59 18:59 06:59 Intake Total 1375 2090 480 Output Total 1350 Balance 25 209 480 Weight 96 kg Intake: IV 1375 1250 Sodium Chloride 0.9% 1, 1375 1250 000 ml @ 125 mls/hr IV . Q8H [facility] Rx#:[id number] Oral 840 480 Output: Urine 1350 Other: Voiding Method Toilet Toilet Toilet # Voids 1 1 3 # Bowel Movements 1 1 - Exam On physical examination, patient appears comfortable in no apparent distress. HEAD: Normocephalic, atraumatic. EYES: No scleral icterus. No conjunctival injection. MOUTH: No lesions, tongue midline. NECK: Trachea midline, no gross abnormalities. CHEST: Clear to auscultation with no wheezing or rhonchi appreciated. HEART: Regular rate and rhythm. ABDOMEN: Soft, obese. Bowel sounds are positive. No organomegaly. No guarding or rigidity. EXTREMITIES: No pedal edema. SKIN: No rashes, no jaundice. NEUROLOGIC: Alert and oriented x3. No focal deficits. - Labs CBC & Chem 7: 10/01/19 04:16 10/01/19 04:14 Labs: Abnormal Lab Results - Last 24 Hours (Table) 09/30/19 09/30/19 Range/Units 04:20 04:20 RBC 3.61 L (4.30-5.90) m/uL Hgb 11.1 L (13.0-17.5) gm/dL Hct 33.5 L (39.0-53.0) % Chloride 109 H (98-107) mmol/L BUN 8 L (9-20) mg/dL Creatinine 0.59 L (0.66-1.25) mg/dL Glucose 72 L (74-99) mg/dL Calcium 8.1 L (8.4-10.2) mg/dL Assessment and Plan (1) GI bleed Narrative/Plan: 79-year-old male with a medical history significant for cataracts and osteoarthritis who presented to the hospital with painless bright red blood per rectum. Multiple episodes of bright red blood with one episode of clots noted. The patient denies any prior episodes of bright red blood per rectum. No colonoscopy in the past and she did undergo Cologard testing in 10/2018 which she says was normal. He denies any pain or cramping at this time. Hemoglobin was 16.9 on presentation and is currently 12.9 stable from 12.4 on last blood draw. Stool did test positive for blood. Computed tomography scan of the abdomen showed extensive diverticulosis and spinal stenosis. At this time suspicion is for diverticular bleed, with no source of GI bleeding found on EGD yesterday. Current Visit: Yes Status: Acute Code(s): K92.2 - GASTROINTESTINAL HEMOR RHAGE, UNSPECIFIED SNOMED Code(s): 74164366 (2) Diverticulosis Current Visit: Yes Status: Acute Code(s): K57.90 - DVRTCLOS OF INTEST, PART UNSP, W/O PERF OR ABSCESS W/O BLEED SNOMED Code(s): 079751589 Plan: Supportive care Continue to monitor hemoglobin and hematocrit and transfuse as needed Okay for low fiber diet Continue Protonix therapy Patient will need colonoscopy in 4-6 weeks for further evaluation, discussed with the patient length who agrees with the treatment plan and will follow-up as discussed Thank you for allowing us to participate in the care of the patient we will continue to follow
[2019-10-01] MEDS: PANTOPRAZOLE 40 MG/10 ML VIAL IV SCH (08:57)
--- NOTE | 2019-10-01 12:02 | P.PN ---
Subjective Progress Note Date: 10/01/19 Principal diagnosis: Acute GI bleeding 79-year-old mckoy who came in yesterday to the emergency department complaining of bloody stool. This started on the day of admission and the patient had approximately 4 bowel movements prior to him coming to the hospital. He describes his bowel movements to be large in amount, bright red with clots. He was quite concerning end up coming into the hospital. He felt slightly lightheaded and he was having some weakness. In the ED, the patient denied having any other complaints for now abdominal pain. No nausea. No vomiting. No hematemesis. He was hemodynamically stable. In fact his blood pressure was on the higher side. Overnight, continued to have on and off bleeding and he had another 3 additional bloody bowel movements. His hemoglobin dropped from 16 at baseline down to 12.4. Coags are within normal limits. Rest of the blood work is all within normal limits. The patient is receiving IV fluids in the form of normal saline at the rate of 1 25 mL an hour. He got a total of 3 L of IV fluid bolus in the emergency department. No history of any liver disease. No 70 nonsteroidal anti-inflammatory medication intake. The patient has not had a previous colonoscopy. He has had a previous Coligaurd evaluation for colon cancer. CAT scan of the abdomen was also done in the emergency department and it showed extensive colonic diverticulosis without signs of diverticulitis. He has also severe spinal stenosis at the level of L3-L4 and this is an incidental finding. He has osteoarthritis and he has undergone previous right knee and the right hip replacement. Patient was reevaluated today on 09/30/2019, had one episode earlier this morning with slightly maroon colored stools, no bright red blood per rectum. Patient had an admission hemoglobin of 16.1, and this was on 09/28/2019, today's hemoglobin is 11.1. Did not require any blood transfusion so far. Patient is hemodynamically stable, his coags are within normal. Patient had EGD and biopsy, no active bleeding was noted, however the biopsies were done from the distal esophagus mostly because of clinical suspicion of Christianson esophagus. But again his findings did not explain his presentation of bleeding, I still believe his GI bleeding is most likely secondary to diverticular bleed unless proven otherwise. Patient never had a colonoscopy in the past. And he may eventually require colonoscopy to document his diverticular disease and diverticular bleeding and this could be done on outpatient basis if gastroenterology staff prefers to do so. And assuming the patient stops bleeding while inpatient. On 10/01/2019 patient seen in follow-up on medical surgical floor. His awake and alert, oriented 3, denies any discomfort, denies any abdominal pain, no nausea or vomiting, he hasn't had any recurrence of GI bleeding since last Monday, his hemoglobin today on today's labs is 11.1, patient has not required any blood transfusions, he is tolerating oral diet, remains on PPI therapy, hemodynamically patient is stable, he is being followed by GI service, he status post EGD on 09/29/2019 and there was no active bleeding found, there was suspicion for Christianson's esophagus and biopsies of the distal esophagus were taken and are pending at this time. Patient is being discharged home today, with a plan for a colonoscopy in 6-8 weeks. Objective - Vital Signs Vital signs: Vital Signs Temp 97.9 F 10/01/19 07:00 Pulse 88 10/01/19 07:00 Resp 12 10/01/19 07:00 BP 123/68 10/01/19 07:00 Pulse Ox 99 10/01/19 07:00 Intake & Output 09/30/19 10/01/19 10/01/19 18:59 06:59 18:59 Intake Total 2090 480 Balance 2090 480 Weight 92.4 kg Intake: IV 1250 Sodium Chloride 0.9% 1, 1250 000 ml @ 125 mls/hr IV . Q8H [facility] Rx#:[id number] Oral 840 480 Other: Voiding Method Toilet Toilet Toilet # Voids 1 1 # Bowel Movements 1 - Exam GENERAL EXAM: Alert, pleasant, 79-year-old white male comfortable in no apparent distress. HEAD: Normocephalic/atraumatic. EYES: Normal reaction of pupils, equal size. Conjunctiva pink, sclera white. NOSE: Clear with pink turbinates. THROAT: No erythema or exudates. NECK: No masses, no JVD, no thyroid enlargement, no adenopathy. CHEST: No chest wall deformity. Symmetrical expansion. LUNGS: Equal air entry with no crackles, wheeze, rhonchi or dullness. CVS: Regular rate and rhythm, normal S1 and S2, no gallops, no murmurs, no rubs ABDOMEN: Soft, nontender. No hepatosplenomegaly, normal bowel sounds, no guarding or rigidity. EXTREMITIES: No clubbing, no edema, no cyanosis, 2+ pulses and upper and lower extremities. MUSCULOSKELETAL: Muscle strength and tone normal. SPINE: No scoliosis or deformity SKIN: No rashes CENTRAL NERVOUS SYSTEM: Alert and oriented -3. No focal deficits, tone is normal in all 4 extremities. PSYCHIATRIC: Alert and oriented -3. Appropriate affect. Intact judgment and insight. - Labs CBC & Chem 7: 10/01/19 04:16 10/01/19 04:14 Labs: Abnormal Lab Results - Last 24 Hours (Table) 10/01/19 10/01/19 Range/Units 04:14 04:16 RBC 3.62 L (4.30-5.90) m/uL Hgb 11.1 L (13.0-17.5) gm/dL Hct 32.9 L (39.0-53.0) % BUN 8 L (9-20) mg/dL Creatinine 0.60 L (0.66-1.25) mg/dL ALT 18 L (21-72) U/L Total Protein 5.3 L (6.3-8.2) g/dL Albumin 3.0 L (3.5-5.0) g/dL Assessment and Plan Plan: Assessment: 1 acute GI bleeding most likely diverticular in nature unless proven otherwise. 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 3 history of degenerative joint disease 4 history of nephrolithiasis. Plan: Continue current treatment, PPI therapy, there has been no recurrence of active bleeding since last Monday, hemodynamically patient remains stable, today's hemoglobin is 11.1, no shortness of breath, no chest pain, vital signs are stable, increase activity as tolerated, the plan is for discharge home today and the patient follow-up with Dr. Hartman with the plan of colonoscopy in 6-8 weeks. I performed a history & physical examination of the patient and discussed their management with my nurse practitioner, Kristen Claudio. I reviewed the nurse practitioner's note and agree with the documented findings and plan of care. Lung sounds are positive for clear breath sounds. The findings and the impression was discussed with the patient. I attest to the documentation by the nurse practitioner. Time with Patient: Less than 30
--- NOTE | 2019-10-01 12:51 | P.DS ---
<Cinthia Sims P - Last Filed: 10/01/19 12:47> Providers Expected date of discharge: 10/01/19 Hospital Course: Discharge diagnosis #1 gastrointestinal bleeding most likely lower GI bleed related to diverticulosis, however patient describes also some melanotic stools. Status post EGD showing no active bleeding, old blood or pathology to explain symptoms. Suspicion for Christianson's esophagus with biopsies of the distal esophagus taken biopsies also taken of the duodenum and antrum and body of the stomach. Per GI services diet has been advanced to low fiber diet. GI bleed has resolved patient has had normal bowel movements and globin remained stable at 11.1. Pl ans for outpatient colonoscopy in 4-6 weeks for further evaluation. Patient has been cleared for discharge from GI standpoint continue Protonix. #2 acute blood loss anemia, related to gastrointestinal bleeding, hemoglobin is down from 16.1-12.4 will continue to monitor #3 evidence of extensive diverticulosis on computed tomography scan without any evidence of acute diverticulitis #4 evidence of multilevel lumbar spinal stenosis with severe spinal stenosis at L3-4 patient denies any related symptoms at this time Hospital course Golden Cornejo is a 79-year-old male who presented to [facility] emergency room with a chief complaint of bloody stools. Patient states that yesterday afternoon he felt that he was going to have a bowel movement, he went to the bathroom and had large amount of bright red blood and blood clots, patient had multiple such episodes over 30 minutes and he started feeling lightheaded and dizzy and he decided to come to emergency room. Patient denies any nausea or vomiting or abdominal pain. Hemoglobin on presentation was 16.1 however due to active bleeding patient was admitted directly to intensive care unit gastroenterology consultation and critical care consultation were requested. Computed tomography scan of the abdomen and pelvis without contrast was done in the emergency room and revealed extensive diverticulosis without any evidence of diverticulitis, no other abdominal or pelvic abnormality was found on the computed tomography scan. Patient has no significant past medical history, he does not take any medications at home, he was advised repeatedly in the past to have a colonoscopy however he declined. On review of systems: patient is alert and oriented 3 in no apparent distress, he denies any fever or chills no headache or dizziness no chest pain no shortness of breath no cough no nausea or vomiting no abdominal pain he is still having episodes of diarrhea with bloody stools, there is no burning was urination no frequency or urgency and no hematuria, there is no weakness or numbness in any of the extremities there is no change in vision or speech or gait. On 09/30/2019 she is alert and oriented 3. Per nursing staff patient did have some dark stool this a.m. Hemoglobin remained stable at 11.1. Patient is status post EGD showing no active bleeding or blood or pathology to explain symptoms suspicion for Christianson's esophagus with biopsies of the distal esophagus. Biopsies taken of the duodenal management body of the stomach. Patient denies any chest pain or shortness of breath. Patient denies nausea vomiting or diarrhea. Patient denies any urinary burning or frequency. Awaiting GI decision in regards to possible colonoscopy vs advancing diet On 10/01/2019 patient is alert and oriented 3. Patient has had 2 normal BMs without signs of blood this a.m. Patient has been tolerating diet. Hemoglobin has been stable to 11.1. Patient denies chest pain or shortness of breath. Patient denies nausea vomiting or diarrhea. Patient denies any urinary burning or frequency. GI services have cleared patient for discharge no plans for colonoscopy at this time will follow up outpatient for Possible colonoscopy outpatient for 4-6 weeks. Repeat hemoglobin has been ordered for 2 days. I performed an examination of the patient and discussed their management with the Nurse Practitioner. I have reviewed the Nurse Practitioner's notes and agree with the documented findings and plan of care Patient Condition at Discharge: Stable Plan - Discharge Summary Discharge Rx Participant: No New Discharge Prescriptions: New Pantoprazole Sodium [Protonix] 40 mg PO DAILY 30 Days #30 tablet. Discharge Medication List Pantoprazole Sodium [Protonix] 40 mg PO DAILY 30 Days #30 tablet. 10/01/19 [Rx] Follow up Appointment(s)/Referral(s): Bigg Noonan MD [Primary Care Provider] - 10/11/19 11:30 am Armani Otero MD [STAFF PHYSICIAN] - 10/08/19 2:00 pm Ambulatory/Diagnostic Orders: Complete Blood Count w/diff [LAB.AMB] Time Frame: 2 Days, Location: None Selected Patient Instructions/Handouts: Gastrointestinal Bleeding (DC) Activity/Diet/Wound Care/Special Instructions: Activity as tolerated Diet as tolerated Discharge Disposition: HOME SELF-CARE <Bigg Noonan - Last Filed: 10/03/19 09:38> Providers Date of admission: 09/28/19 20:30 Attending physician: Bigg Noonan Consults: 09/28/19 21:07 Consult Physician Stat Consulting Provider: Joselo Grayson Consult Reason/Comments: GI bleed Do you want consulting provider notified?: Already Contacted 09/28/19 22:34 Consult Physician Urgent Consulting Provider: Cally Benítez Consult Reason/Comments: gastrointestinal bleed Do you want consulting provider notified?: Yes Primary care physician: Bigg Noonan [facility] Course: Patient educated that he will need outpatient colonoscopy and to return to hospital if bleeding reoccurs.
== END 2019-10-01 14:05 | disposition home or self-care (01) | DRG 378 ==
LOC: EC 19:14 → 2SICU 20:30 → 4SSUR 10-01 05:54
PROVIDERS: ADMIT Internal Medicine; ATTEND Internal Medicine
PROC: 0DB98ZX Excision of Duodenum, Via Natural or Artificial Opening Endoscopic, Diagnostic (ICD-10-PCS; principal; 2019-09-29 12:00)
PROC: 0DB78ZX Excision of Stomach, Pylorus, Via Natural or Artificial Opening Endoscopic, Diagnostic (ICD-10-PCS; principal; 2019-09-29 12:00)
PROC: 0DB38ZX Excision of Lower Esophagus, Via Natural or Artificial Opening Endoscopic, Diagnostic (ICD-10-PCS; principal; 2019-09-29 12:00)
DX: K57.31 Diverticulosis of large intestine without perforation or abscess with bleeding (principal); D62 Acute posthemorrhagic anemia; M19.90 Unspecified osteoarthritis, unspecified site; H26.9 Unspecified cataract; Z96.641 Presence of right artificial hip joint; M48.061 Spinal stenosis, lumbar region without neurogenic claudication; K22.70 Barrett's esophagus without dysplasia; K29.50 Unspecified chronic gastritis without bleeding; Z96.651 Presence of right artificial knee joint; Z98.890 Other specified postprocedural states; Z87.442 Personal history of urinary calculi; Z90.89 Acquired absence of other organs; Z87.891 Personal history of nicotine dependence
CPT/HCPCS: 36415; 43239; 74177; 80048; 80053; 82272; 83605; 84484; 85025; 85730; 86850; 86900; 86901; 88305; 96361; 96374; 99285